=== PATIENT | female | born 1940 | race Caucasian/White ===

== ENCOUNTER 2018-06-12 08:10 | Emergency (ER) | payer MEDICARE, OTHER ==
[~2018-06-12] VITALS: Ht 167.6 cm; Wt 81.8 kg
[~2018-06-12 08:10] MED LIST: ALBU6.7H INH; ASPI81TA30 PO; ATOR10TA70 PO; CLOP75TA33 PO; DIPH25CA83 PO; ISOS30TA6 PO; LISI2.5T2 PO; LOPE2TAB25 PO; METO25TA6 PO; NITR0.4T48 SL; RANI150C4 PO
[2018-06-12] MEDS ORDERED: pantoprazole 40 MG vial IV ONE (08:45)
[2018-06-12] MEDS ORDERED: ondansetron/PF 4mg/2ml inj IV ONE (08:45)
[2018-06-12 08:48] LABS: BASOPHILS % (AUTO) 0.3 % (0-1); EOSINOPHILS # (AUTO) 0.1 X10'3 (0-0.9); EOSINOPHILS % (AUTO) 1.2 % (0-6); HEMATOCRIT 42.2 % (35.0-45.0); HEMOGLOBIN 14.7 g/dl (12.0-16.0); LYMPHOCYTES % (AUTO) 10.9 % (21-51); MEAN CORPUSCULAR HEMOGLOBIN 34.6 PG (27.0-31.0); MEAN CORPUSCULAR HGB CONC 34.7 % (33.0-36.5); MEAN CORPUSCULAR VOLUME 99.6 FL (78-98); MEAN PLATELET VOLUME 7.9 FL (7.4-10.4); MONOCYTES # (AUTO) 0.6 X10'3 (0-0.9); NEUTROPHILS # (AUTO) 7.2 X10'3 (1.8-7.7); NEUTROPHILS % (AUTO) 80.6 % (42-75); PLATELET COUNT 182 X10'3 (140-440); RED BLOOD COUNT 4.24 X10'6 (4.20-5.60); RED CELL DISTRIBUTION WIDTH 14.4 % (11.5-14.5); WHITE BLOOD COUNT 8.9 X10'3 (4.5-11.0)
[2018-06-12 08:53] LABS: CLARITY,URINE SLIGHTLY CLOUDY (Clear); COLOR,URINE YELLOW (Yellow); GLUCOSE, URINE NEGATIVE (Neg); KETONES,URINE >=80 mg/dl (Neg); LEUKOCYTE ESTERASE ,URINE NEGATIVE (Neg); NITRITES, URINE NEGATIVE (Neg); OCCULT BLOOD,URINE SMALL (Neg); PH,URINE 5.5 (4.8-8.0); PROTEIN,URINE 30 mg/dl (Neg); UA COLLECTION TYPE CLN CATCH MIDSTREAM; UROBILINOGEN,URINE 0.2 E.U/dL (0.2-1.0)
[2018-06-12 08:57] LABS: INR 1.1 INR; PROTHROMBIN TIME 10.7 SECONDS (9.0-12.0)
[2018-06-12 09:00] LABS: SQUAMOUS EPITHELIAL CELL,UR MANY /LPF (FEW)
[2018-06-12 09:00] LABS: ALANINE AMINOTRANSFERASE 13 U/L (12-78); ALBUMIN 3.5 G/DL (3.4-5.0); ALBUMIN/GLOBULIN RATIO 0.8 (1.1-1.5); ALKALINE PHOSPHATASE 99 IU/L (46-116); ANION GAP 11 (8-16); ASPARTATE AMINO TRANSFERASE 17 U/L (10-37); BILIRUBIN,TOTAL 0.7 MG/DL (0.1-1.0); BLOOD UREA NITROGEN 12 MG/DL (7-18); BUN/CREATININE RATIO 14.1 (6.6-38.0); CALCIUM 8.8 MG/DL (8.5-10.1); CHLORIDE 98 MMOL/L (99-107); CREATININE 0.85 MG/DL (0.40-0.90); ETHANOL < 0.010 GM/DL (0.0-0.010); GLUCOSE 113 MG/DL (70-104); LIPASE 1199 U/L (73-393); MAGNESIUM 1.4 MG/DL (1.5-2.4); SODIUM 139 MMOL/L (135-145); TOTAL CARBON DIOXIDE 30.5 MMOL/L (24-32); TOTAL PROTEIN 7.8 G/DL (6.4-8.2); eGFR 65 ML/MIN
[2018-06-12 09:01] LABS: MUCUS STRANDS FEW /LPF (Neg)
[2018-06-12 09:02] LABS: POTASSIUM 2.8 MMOL/L (3.5-5.1)
[2018-06-12 09:02] LABS: BACTERIA,URINE 2+ /HPF (Neg); RBC,URINE 0-2 /HPF (0-2); WBC,URINE 0-4 /HPF (0-4)
[2018-06-12] MEDS ORDERED: iohexol 300mg/ml 100ml inj. ONE (09:18)
[2018-06-12] MEDS ORDERED: morphine 2 MG/ML inj. syringe IV ONE (10:00)
[2018-06-12] MEDS ORDERED: ONDA4TAB12 PO (11:29)
[2018-06-12] MEDS ORDERED: HYDR-3965 PO (11:29)
[2018-06-12] MEDS ORDERED: POTA10TA19 PO (11:35)
[2018-06-12] MEDS ORDERED: potassium Cl 20 mEq SR tablet PO ONE (11:35)
[2018-06-12] MEDS ORDERED: PANT-47 PO (11:35)
[2018-06-12 11:49] VITALS: BP 124/96
== END 2018-06-12 11:51 | disposition home or self-care (01) ==
LOC: ER 08:10
DX: K85.90 Acute pancreatitis without necrosis or infection, unspecified (principal); F10.10 Alcohol abuse, uncomplicated; I25.10 Atherosclerotic heart disease of native coronary artery without angina pectoris; I10 Essential (primary) hypertension; I25.2 Old myocardial infarction; J45.909 Unspecified asthma, uncomplicated; Z85.41 Personal history of malignant neoplasm of cervix uteri; Z98.61 Coronary angioplasty status; Z59.0 Homelessness; Z88.0 Allergy status to penicillin; Z88.6 Allergy status to analgesic agent; Z79.82 Long term (current) use of aspirin; Z79.01 Long term (current) use of anticoagulants; Z79.899 Other long term (current) drug therapy; Y90.9 Presence of alcohol in blood, level not specified
CPT/HCPCS: 36415; 71045; 74177; 80053; 80320; 81001; 83690; 83735; 83880; 84484; 85025; 85610; 93005; 96374; 96375; 99284; C9113; J2270; J2405; Q9967

== ENCOUNTER 2021-05-23 08:15 | Emergency (ER) | payer SELFPAY ==
[~2021-05-23] VITALS: Ht 167.6 cm; Wt 113.6 kg
[~2021-05-23 08:15] MED LIST changes: -ALBU6.7H INH; +ALBU6.7H9 INH; -ISOS30TA6 PO; +ISOS30TA84 PO; +LISI2.5T14 PO; -LISI2.5T2 PO; +LOP25T PO; -METO25TA6 PO; +ONDA4TAB12 PO; +PANT-47 PO
[2021-05-23 08:29] VITALS: BP 170/86
[2021-05-23] MEDS ORDERED: CEPH250T PO (08:37)
[2021-05-23] MEDS ORDERED: SULF1TAB45 PO (08:37)
== END 2021-05-23 08:50 | disposition home or self-care (01) ==
LOC: ER 08:15
DX: L02.211 Cutaneous abscess of abdominal wall (principal); I25.10 Atherosclerotic heart disease of native coronary artery without angina pectoris; I10 Essential (primary) hypertension; I25.2 Old myocardial infarction; J45.909 Unspecified asthma, uncomplicated; Z87.01 Personal history of pneumonia (recurrent); Z85.41 Personal history of malignant neoplasm of cervix uteri; Z98.890 Other specified postprocedural states; Z72.89 Other problems related to lifestyle; Z59.00 Homelessness unspecified; Z88.0 Allergy status to penicillin; Z88.8 Allergy status to other drugs, medicaments and biological substances; Z79.82 Long term (current) use of aspirin; Z79.2 Long term (current) use of antibiotics; Z79.899 Other long term (current) drug therapy
CPT/HCPCS: 10060; 99283